=== PATIENT | male | born 1980 | race Caucasian/White ===

== ENCOUNTER 2023-03-25 13:31 | Outpatient (CLI) | payer BC, SELFPAY | END 2023-03-25 13:32 | disposition home or self-care (01) | PROVIDERS: PCP Family Medicine; Visit Provider Family Medicine | DX: Z00.00 Encounter for general adult medical examination without abnormal findings (principal); E78.5 Hyperlipidemia, unspecified; Z13.29 Encounter for screening for other suspected endocrine disorder | CPT/HCPCS: 80048; 80061; 84443 ==

== ENCOUNTER 2023-12-30 16:15 | Outpatient (CLI) | payer BC, SELFPAY | END 2023-12-30 16:16 | disposition home or self-care (01) | PROVIDERS: PCP Family Medicine; Visit Provider Family Medicine | DX: R79.89 Other specified abnormal findings of blood chemistry (principal); R53.83 Other fatigue; Z13.29 Encounter for screening for other suspected endocrine disorder | CPT/HCPCS: 80048; 84403; 84443 ==

== ENCOUNTER 2024-01-20 10:05 | Outpatient (CLI) | payer BC, SELFPAY | END 2024-01-20 10:06 | disposition home or self-care (01) | LOC: NFLDREF 10:06 | PROVIDERS: PCP Family Medicine; Visit Provider Family Medicine | DX: E78.2 Mixed hyperlipidemia (principal); R79.89 Other specified abnormal findings of blood chemistry | CPT/HCPCS: 80061; 84403 ==

== ENCOUNTER 2025-05-01 09:05 | Outpatient (CLI) | payer BC, SELFPAY ==
[2025-05-01 12:10] LABS: Cannabinoid Screen Urine Negative (Negative); Methamphetamines Screen Urine Negative (Negative); Tricyclic Antidepressant Urine Negative (Negative)
== END 2025-05-01 09:06 | disposition home or self-care (01) ==
LOC: NPINS 09:07
PROVIDERS: PCP Family Medicine; Visit Provider Nurse Practitioner Psychiatric/Mental Health
DX: F41.1 Generalized anxiety disorder (principal); F42.9 Obsessive-compulsive disorder, unspecified; F43.10 Post-traumatic stress disorder, unspecified
CPT/HCPCS: 80306